=== PATIENT | male | born 1980 | race Native Hawaiian/Other Pacific Islander ===

== ENCOUNTER 2023-04-17 09:37 | Emergency (ER) | payer OTHER ==
[~2023-04-17] VITALS: Ht 167.6 cm; Wt 65.3 kg
[2023-04-17 10:14] LABS: PLATELET COUNT 241 K/uL (142-355)
[2023-04-17 10:24] LABS: POTASSIUM 4.3 mmol/L (3.6-5.2); SODIUM 141 mmol/L (136-145)
[2023-04-17 13:44] VITALS: BP 105/65; TEMP 97
== END 2023-04-17 13:44 | disposition home or self-care (01) ==
LOC: ED 09:37
PROVIDERS: Emergency Medicine
DX: K52.9 Noninfective gastroenteritis and colitis, unspecified (principal); K27.9 Peptic ulcer, site unspecified, unspecified as acute or chronic, without hemorrhage or perforation; F17.210 Nicotine dependence, cigarettes, uncomplicated
CPT/HCPCS: 80053; 81002; 83690; 84484; 85027; 93005; 96361; 96374; 96375; 96376; 99284; J2270; J2405; J3490; Q9963